=== PATIENT | female | born 1935 ===

== ENCOUNTER 2022-10-26 12:59 | Emergency (ER) | payer OTHER ==
[~2022-10-26] VITALS: Ht 162.6 cm; Wt 56.7 kg
== END 2022-10-26 19:49 | disposition home or self-care (01) ==
LOC: ER 12:59 → EDBD 13:02 → ER 19:49
DX: B34.9 Viral infection, unspecified (principal); I10 Essential (primary) hypertension; Z88.8 Allergy status to other drugs, medicaments and biological substances; Z20.822 Contact with and (suspected) exposure to COVID-19